=== PATIENT | male | born 1990 | race Caucasian/White ===

== ENCOUNTER 2021-03-05 12:53 | Emergency (ER) | payer SELFPAY ==
--- NOTE | ~2021-03-05 | US_ITS ---
EXAMINATION: US scrotum doppler EXAM DATE: 03/05/2021 14:04 INDICATION: Right-sided testicular swelling. Symptoms one week. TECHNIQUE: Multiple grayscale and Doppler images of the testicles and scrotum were obtained bilateral ly. There is no prior study for comparison. FINDINGS: Right testicle measures 3.4 x 3.5 x 3.7 cm and is morphologically normal. Low resistance Doppler sandy w confirmed. The epididymis is enlarged and hypervascular. There is a moderate-sized hydrocele. Left testicle measures 5.1 x 2.9 x 2.4 cm and is morphologically normal. Low resistance Doppler flow confirmed. The epididymis is unremarkable. There is no hydrocele or varicocele. IMPRESSION: Right-sided epididymoorchitis, moderate hydrocele. Reviewed, dictated and finalized at location A. IED BEHAVIOR SCIENCE SPECIALIST
[2021-03-05 13:10] VITALS: BP 149/88; PULSE 114; RESP 16; TEMP 36.6; O2SAT 100
[2021-03-05 14:31] LABS: Add Urine Microscopic? YES; Appearance Urine Cloudy (Clear); Bacteria Urine Trace /hpf; Bilirubin Urine Negative (Negative); Blood Urine Negative (Negative); Color Urine Yellow (Yellow); Glucose Urine UA Negative (Negative); Ketones Urine Negative (Negative); Leukocyte Esterase Ur 2+ LEU/UL (Negative); Mucus Urine Few /lpf; Nitrate Urine Negative (Negative); Protein Urine 1+ mg/dL (Negative); Specific Grav Ur 1.019 (1.001-1.035); Squamous Epithelial Cell Urine Rare /hpf (Few); Urobilinogen Urine Negative mg/dL (<2.0); WBC Urine 31-50 /hpf
[2021-03-05] MEDS: KETOROLAC 30 MG/ML VIAL (*BKC) IV PUSH (14:36)
[2021-03-05] MEDS: cefTRIAXone 1 GM VIAL 0.5 GM IM (15:23)
--- NOTE | 2021-03-05 15:49 | ED.GENADULT ---
HPI - General Adult General Chief complaint: Urogenital-Male <Raghavendra Gonzales PA-C - Last Filed: 03/05/21 15:57> Stated complaint: R TESTICULAR SWELLING X5D <FARNAZ Allen Last Filed: 03/05/21 15:57> Time Seen by Provider: 03/05/21 13:35 <Raghavendra Gonzales PA-C - Last Filed: 03/05/21 15:57> Source: patient <FARNAZ Allen Last Filed: 03/05/21 15:57> Mode of arrival: ambulatory <FARNAZ Allen Last Filed: 03/05/21 15:57> Limitations: no limitations <Raghavendra Gonzales PA-C - Last Filed: 03/05/21 15:57> History of Present Illness HPI narrative: Patient is a 30-year-old male presented with chief complaint of right testicle swelling and discomfort that has been present since Friday. Patient reports that he has noticed a very slight decrease in erythema and pain. Patient reports that he has been wearing supportive underwear and notices that this helps improve his symptoms. Patient reports that he is sexually active once a month that he denies any anal sexual intercourse. Patient denies any fevers, nausea, vomiting, chills, abdominal pain. He reports that he is allergic to amoxicillin as a child and believes he had a rash, but does not recall any issues with cephalosporins or clindamycin. He denies any testicular trauma. <Raghavendra Gonzales PA-C - Last Filed: 03/05/21 15:57> Related Data Allergies/adverse reactions: Allergies Allergy/AdvReac Type Severity Reaction Status Date / Time amoxicillin Allergy Unknown Verified 07/01/16 01:48 <Raghavendra Gonzales PA-C - Last Filed: 03/05/21 15:57> Review of Systems Review of Systems: CONSTITUTIONAL: Denies fever, chills, or sweats. EYES: Denies visual changes, redness, or discharge. ENT: Denies rhinorrhea, congestion, sore throat, or otalgia. CARDIOVASCULAR: Denies chest pain, palpitations, or edema. RESPIRATORY: Denies cough or dyspnea. GASTROINTESTINAL: Denies abdominal pain, nausea, vomiting, or diarrhea. GENITOURINARY: Reports testicular pain and swelling denies dysuria or hematuria. SKIN: Denies rash or itching. MUSCULOSKELETAL: Denies back pain, joint pain, or myalgia. NEUROLOGIC: Denies headache, numbness, dizziness, or weakness. PSYCHIATRIC: Denies anxiety or depression. <Raghavendra Gonzales PA-C - Last Filed: 03/05/21 15:57> Exam Narrative: GENERAL: Well-appearing, well-nourished, and in no acute distress. HEAD: Normocephalic, atraumatic. EYES: PERRLA and EOMI. CHEST: Clear to auscultation. No respiratory distress. No wheezes rales or rhonchi HEART: Regular rate and rhythm. No murmur heard. Normal peripheral pulses. ABDOMEN: Soft, nontender, nondistended, normal active bowel sounds. No vomiting. GENITALIA: Swollen,erythematous, warm right testicle. Pain improves with elevation. No erythema, lesions, or pain to penis. No wounds or ulcers noted. EXTREMITIES: Normal range of motion. No edema. SKIN: Warm, dry, no rash. NEURO: No focal deficits. Alert and oriented x3. PSYCH: Normal mood and affect. <Raghavendra Gonzales PA-C - Last Filed: 03/05/21 15:57> Course Vital Signs Vital signs: Vital Signs Temperature 97.8 F 03/05/21 13:10 Pulse Rate 114 H 03/05/21 13:10 Respiratory Rate 16 03/05/21 13:10 Blood Pressure 149/88 H 03/05/21 13:10 Pulse Oximetry 100 03/05/21 13:10 Temperature 97.8 F 03/05/21 13:10 Pulse Rate 114 H 03/05/21 13:10 Respiratory Rate 16 03/05/21 13:10 Blood Pressure 149/88 H 03/05/21 13:10 Pulse Oximetry 100 03/05/21 13:10 <Raghavendra Gonzales PA-C - Last Filed: 03/05/21 15:57> Medical Decision Making MDM Narrative Medical decision making narrative: Patient denies having anal intercourse so UTD epididymoorchitis recommendations are 500 mg of ceftriaxone and doxycycline for 10 days. Patient denies allergy to cephalosporins. Patient reports amoxicillin is on his allergy list due to a childhood rash, but denies anaphylaxis. Patient does not have any urin
== END 2021-03-05 16:00 | disposition home or self-care (01) ==
PROVIDERS: Emergency Medicine; Physician Assistant; Emergency Provider General Practice
DX: N45.3 Epididymo-orchitis (principal)
CPT/HCPCS: 76870; 81001; 87086; 87491; 87591; 93976; 96372; 96374; 99284; J0696; J1885; J7050

== ENCOUNTER 2022-06-13 19:00 | Emergency (ER) | payer OTHER, SELFPAY ==
[2022-06-13 19:05] VITALS: BP 129/96; PULSE 97; RESP 18; TEMP 37.2; O2SAT 100
[2022-06-13] MEDS: IBUPROFEN 400 MG TABLET 800 MG PO (22:51)
[2022-06-13 23:21] LABS: Basophils Absolute Auto 0.1 K/mm3 (0.0-0.1); Basophils Percent Auto 0.4 % (0.2-1.2); Eosinophils Absolute Auto 0.2 K/mm3 (0-0.3); Eosinophils Percent Auto 1.1 % (0-4.4); Hematocrit 43.7 % (42.0-52.0); Hemoglobin 14.9 g/dL (14.0-18.0); Immature Granulocyte Absolute 0.05 K/mm3 (0.00-0.031); Immature Granulocyte Percent A 0.3 % (0-0.5); Lymphocytes Absolute Auto 2.11 K/mm3 (0.9-3.2); Lymphocytes Percent Auto 12.7 % (18.3-44.2); Mean Corpuscular HGB Conc 34.1 g/dl (32-36); Mean Corpuscular Hemoglobin 29.5 pg (26-34); Mean Corpuscular Volume 86.5 fl (80-100); Mean Platelet Volume 9.1 fl (7.4-10.4); Monocytes Absolute Auto 1.2 K/mm3 (0.1-0.6); Monocytes Percent Auto 7.5 % (2.6-8.5); Platelet Count Result 284 k/mm3 (150-375); Red Blood Count 5.05 M/mm3 (4.6-6.20); Red Cell Distribution Width 13.2 % (11.5-14.5); White Blood Count 16.6 K/mm3 (4.5-10.0)
[2022-06-13 23:30] LABS: Alanine Aminotransferase 18 U/L (6-50); Albumin Level 4.1 g/dL (3.5-5.1); Alkaline Phosphatase 76 U/L (38-126); Anion Gap 4 mmol/L (8-16); Aspartate Amino Transferase 22 U/L (17-59); Bilirubin,Total 1.2 mg/dL (0.2-1.3); Blood Urea Nitrogen 16 mg/dL (9-20); Calcium 8.7 mg/dL (8.4-10.2); Carbon Dioxide 28 mmol/L (22-30); Chloride 101 mmol/L (98-107); Estimated CRCL calculation 96 ml/min; Estimated Glomerular Filt Rate > 60; Glucose 88 mg/dL (65-110); Sodium 133 mmol/L (137-145)
--- NOTE | 2022-06-13 23:30 | ED.GENADULT ---
HPI - General Adult General Chief complaint: Skin/Abscess/Foreign Body <Donnell Mares PA-C - Last Filed: 06/14/22 02:56> Stated complaint: right arm abscess <FARNAZ Ricardo Last Filed: 06/14/22 02:56> Time Seen by Provider: 06/13/22 21:05 <FARNAZ Ricardo Last Filed: 06/14/22 02:56> Source: patient <FARNAZ Ricardo Last Filed: 06/14/22 02:56> Mode of arrival: ambulatory <FARNAZ Ricardo Last Filed: 06/14/22 02:56> Limitations: no limitations <FARNAZ Ricardo Last Filed: 06/14/22 02:56> History of Present Illness HPI narrative: This is a 31-year-old male presents with chief complaint of skin lesion onset x3 days. Patient states it is located on the right arm. Patient states he thought he had a bug bite on the arm and scratched at it. States this has been draining purulent material all of today. Reports pain at the site and surrounding redness. Denies any IV drug use. Reports chills but no recorded fevers. States he is fatigued. Denies chest pain, shortness of breath, cough, headache, abdominal pain, urinary symptoms. States he has not taken any medication for this at home. <FARNAZ Ricardo Last Filed: 06/14/22 02:56> Related Data Allergies/adverse reactions: Allergies Allergy/AdvReac Type Severity Reaction Status Date / Time amoxicillin Allergy Unknown Unknown Verified 06/13/22 19:01 <FARNAZ Ricardo Last Filed: 06/14/22 02:56> Review of Systems Review of Systems: CONSTITUTIONAL: Denies fever, or sweats. Endorses fatigue and chills. EYES: Denies visual changes, redness, or discharge. ENT: Denies rhinorrhea, congestion, sore throat, or otalgia. CARDIOVASCULAR: Denies chest pain, palpitations, or edema. RESPIRATORY: Denies cough or dyspnea. GASTROINTESTINAL: Denies abdominal pain, nausea, vomiting, or diarrhea. GENITOURINARY: Denies dysuria or hematuria. SKIN: Endorses skin lesions of the right arm. Endorses erythema and pain. denies rash or itching. MUSCULOSKELETAL: Denies back pain, joint pain, or myalgia. NEUROLOGIC: Denies headache, numbness, dizziness, or weakness. PSYCHIATRIC: Denies anxiety or depression. <Donnell Mares PA-C - Last Filed: 06/14/22 02:56> Exam Narrative: GENERAL: Well-appearing, well-nourished, and in no acute distress. HEAD: Normocephalic, atraumatic. EYES: PERRLA and EOMI. ENT: Nares clear, no rhinorrhea or epistaxis. Mucous membranes moist. Oropharynx without tonsillar hypertrophy exudate or other lesions. NECK: Supple. No adenopathy or masses. CHEST: No respiratory distress. Clear to auscultation. No wheezes rales or rhonchi HEART: Regular rate and rhythm. No murmur heard. Normal peripheral pulses. ABDOMEN: Soft, nontender, nondistended, normal active bowel sounds. EXTREMITIES: Normal range of motion. No edema. Full active range of motion of the right shoulder. SKIN: There is a area of redness to the right lateral upper arm, deltoid region. Centrally located indurated, erythematous, purulent lesion that is currently draining. Significantly tender to palpation. No crepitus is felt. Warm, dry, no rash. NEURO: Alert and oriented x3. No focal deficits. PSYCH: Normal mood and affect. <Donnell Mares PA-C - Last Filed: 06/14/22 02:56> Course NUCLEAR RADIOLOGIST/PA Physician Supervision For this encounter, I have reviewed the mid-level provider documentation, treatment plan and medical decision making. I have had [id number] time with the patient. 31-year-old male presenting with an abscess on his right upper arm. Fluid collections current firmed with ultrasound. An I&D was performed hobson components performed under my supervision. Patient will be discharged on clindamycin. . All questions answered. Patient in agreement w/ disposition. <Lito Win MD - Last Filed: 06/16/22 19:26> Vital Signs Vital signs: Vital Signs Temperature 99 F 06/13/22 19:05 Pulse Rate 97 06/13/22 19:05 Respi
[2022-06-13] MEDS: LIDO 1%/EPINEPHRINE 1:100,000 20 ML VIAL 10 ML INFILTRATE (23:51)
[2022-06-14 00:49] VITALS: BP 134/72; PULSE 110; RESP 16; O2SAT 10
--- NOTE | 2022-06-18 10:15 | PC.NURSE ---
Received call from lab with critical lab value for wound cx. Cx positive for MRSA. Dr. Bocanegra was on-call for the ED when pt was seen. Lab results faxed to Dr. Bocanegra's office.
== END 2022-06-14 00:55 | disposition home or self-care (01) ==
PROVIDERS: Emergency Provider Physician Assistant
DX: L03.113 Cellulitis of right upper limb (principal); L02.413 Cutaneous abscess of right upper limb
CPT/HCPCS: 10060; 36415; 80053; 85025; 87070; 87147; 87186; 87205; 99283; A9270

== ENCOUNTER 2022-06-20 19:45 | Observation (INO) | payer OTHER, SELFPAY ==
--- NOTE | ~2022-06-20 | CT_ITS ---
CT scan of the right shoulder CLINICAL HISTORY: Abscess, spider bite TECHNIQUE: Following intravenous administration of 100 cc of Omnipaque 350 contrast material, axial i maging of the right shoulder was performed. Sagittal and coronal reformatted images were constructed. Dose reduction technique was used on this scan by utilizing automated exposure control and iterative reconstruction technique. The dose-length product (DLP) was 588.22 mGy-cm. FINDINGS: There is no fracture or dislocation. Osseous alignment is anatomic. Visualized joint spaces are unremarkable. No glenohumeral joint effusion. Visualized musculature is unremarkable. There is apparent wound with skin thickening at the lateral a spect of the upper arm. No abscess identified. IMPRESSION: No abscess. No osseous or articular abnormality. Skin thickening and irregularity consistent with wound or spider bite at the lateral aspect of the up per arm. Correlate with physical exam. Reviewed, dictated and finalized at [facility]. UET SERVER IMPRESSION: No abscess. No osseous or articular abnormality. Skin thickening and irregularity consistent with wound or spider bite at the la teral aspect of the upper arm. Correlate with physical exam.
[2022-06-20 20:11] VITALS: BP 130/81; PULSE 92; RESP 18; TEMP 36.3; O2SAT 100
--- NOTE | 2022-06-20 21:52 | ED.WOUNDLAC ---
HPI - Wound/Laceration General Chief Complaint: Wound/Laceration <FARNAZ Guerrero Last Filed: 06/21/22 02:05> Stated Complaint: wound <FARNAZ Guerrero Last Filed: 06/21/22 02:05> Time Seen by Provider: 06/20/22 21:33 <FARNAZ Guerrero Last Filed: 06/21/22 02:05> History of Present Illness HPI narrative: 31-year-old male here for evaluation of drainage, redness and pain to his right shoulder. He had an abscess drained several days ago here in the ER and was placed on clindamycin. Patient has been taking the clinda as directed but states that the wound is getting worse. He has left the wound open and exposed to air. He has also developed 2 new abscesses near his groin that are draining spontaneously. Denies history of diabetes or IV drug use. <FARNAZ Guerrero Last Filed: 06/21/22 02:05> Related Data Allergies/Adverse Reactions: Allergies Allergy/AdvReac Type Severity Reaction Status Date / Time amoxicillin Allergy Unknown Unknown Verified 06/20/22 22:37 <FARNAZ Guerrero Last Filed: 06/21/22 02:05> Review of Systems Review of Systems: Gen.: Denies fevers or chills Eyes: Denies eye pain or visual change ENT: Denies congestion Respiratory: Denies shortness of breath or cough CV: Denies chest pain or palpitations GI: Denies abdominal pain nausea, emesis or diarrhea denies burning, urgency, frequency or hematuria Musculoskeletal: Denies leg swelling Neuro: Denies numbness, tingling, weakness or focal weakness Skin: Reports redness and swelling to right shoulder Except as documented, all other systems reviewed and negative <FARNAZ Guerrero Last Filed: 06/21/22 02:05> Exam Narrative: APPEARANCE: Well appearing, no pain in distress, well-nourished. Head: Normocephalic and atraumatic. EYES: PERRLA/EOMI, conjunctivae clear NOSE: No nasal drainage EARS: External ear normal in appearance THROAT: Oropharynx is clear. Mucous membranes are moist. NECK: Supple. No adenopathy, no masses. RESPIRATORY: Airway patent, respirations nonlabored. Clear to auscultation bilaterally, no rales, rhonchi, wheezing. CARDIOVASCULAR: Regular rate and rhythm without murmurs, rubs, or gallops. ABDOMINAL: Normoactive bowel sounds. Soft, nontender, nondistended. No rebound tenderness or guarding. MUSCULOSKELETAL: Extremities are warm and well-perfused. Moves all extremities well. No edema. NEURO: Normal speech. No focal neurologic deficits. SKIN: Patient has a 2 x 3 cm circular wound overlying the right deltoid with large amounts of purulent material spontaneously draining and overlying eschar, very tender to palpation. The eschar was gently removed and there is subcutaneous fat visible, no muscle tissue visible. He additionally has two 1 cm areas of erythema to his mons pubis have some underlying fluctuance and induration, also are very tender to palpation. 1 of these lesions is draining purulent material as well. PSYCHIATRIC: Normal affect/mood. <Cindy Hatch PA-C - Last Filed: 06/21/22 02:05> Course CONSUMER AFFAIRS SPECIALIST/PA Physician Supervision For this encounter, I have reviewed the PA documentation, treatment plan and medical decision making: And I have had [id number] time with the patient. Patient's right upper lateral arm with a large open wound with purulent drainage with surrounding erythema upper extremity neurovascular intact discussed need for admission questions answered in agreement <Edouard Joseph DO - Last Filed: 06/21/22 01:32> Vital Signs Vital signs: Vital Signs Temperature 97.4 F L 06/20/22 20:11 Pulse Rate 92 06/20/22 20:11 Respiratory Rate 18 06/20/22 20:11 Blood Pressure 130/81 06/20/22 20:11 Pulse Oximetry 100 06/20/22 20:11 Oxygen Delivery Room Air 06/20/22 20:11 Temperature 97.4 F L 06/20/22 20:11 Pulse Rate 92 06/20/22 20:11 Respiratory Rate 18 06/20/22 20:11 Blood Pressure
[2022-06-20] MEDS: HYDROcodone/acetaminophen (*CRX) 5-325 MG TABLET 1 TAB PO (22:31)
[2022-06-20] MEDS: LIDOCAINE/PRILOCAINE CREAM 2.5-2.5% TUBE 1 EACH TOPICAL (22:53)
[2022-06-20 23:00] VITALS: BP 130/87; PULSE 73; RESP 14; O2SAT 96
[2022-06-20 23:01] LABS: Basophils Absolute Auto 0.1 K/mm3 (0.0-0.1); Basophils Percent Auto 0.5 % (0.2-1.2); Eosinophils Absolute Auto 0.3 K/mm3 (0-0.3); Eosinophils Percent Auto 2.4 % (0-4.4); Hematocrit 45.8 % (42.0-52.0); Hemoglobin 15.4 g/dL (14.0-18.0); Immature Granulocyte Absolute 0.03 K/mm3 (0.00-0.031); Immature Granulocyte Percent A 0.3 % (0-0.5); Lymphocytes Absolute Auto 2.63 K/mm3 (0.9-3.2); Lymphocytes Percent Auto 25.2 % (18.3-44.2); Mean Corpuscular HGB Conc 33.6 g/dl (32-36); Mean Corpuscular Hemoglobin 29.2 pg (26-34); Mean Corpuscular Volume 86.9 fl (80-100); Mean Platelet Volume 8.9 fl (7.4-10.4); Monocytes Absolute Auto 0.9 K/mm3 (0.1-0.6); Neutrophils Absolute Auto 6.6 K/mm3 (1.3-6.7); Neutrophils Percent Auto 62.6 % (45.5-73.1); Platelet Count Result 383 k/mm3 (150-375); Red Blood Count 5.27 M/mm3 (4.6-6.20); Red Cell Distribution Width 12.6 % (11.5-14.5); White Blood Count 10.5 K/mm3 (4.5-10.0)
[2022-06-20 23:15] LABS: Anion Gap 3 mmol/L (8-16); Blood Urea Nitrogen 16 mg/dL (9-20); CRP 0.7 mg/dL (<1.0); Calcium 8.4 mg/dL (8.4-10.2); Carbon Dioxide 32 mmol/L (22-30); Chloride 101 mmol/L (98-107); Estimated CRCL calculation 106 ml/min; Estimated Glomerular Filt Rate > 60; Glucose 102 mg/dL (65-110); Sodium 136 mmol/L (137-145)
[2022-06-21] VITALS (7 sets, daily range): BP systolic 119–128; BP diastolic 69–98; PULSE 64–99; RESP 12–19; TEMP 36.2–36.8; O2SAT 96–100
[2022-06-21 00:08] LABS: Erythrocyte Sedimentation Rate 17 mm/hr (0-20)
[2022-06-21 04:56] LABS: Influenza A QL RT-PCR Negative (Negative); Influenza B QL RT-PCR Negative (Negative); SARS-CoV-2 RNA PCR Negative
--- NOTE | 2022-06-21 05:24 | ADMGEN ---
This patient, Ash Gandhi, was admitted to [facility] Surg Room 305-02. Patient/family oriented to hospital policies and general routines including ID bracelet, bed and alarms, visiting hours, pain management, procedures, bathroom and other care routines, personal items, smoking policy, room service/diet, and visiting hours. Information on how to activate the Rapid Response Team has been discussed. Patient/Family are encouraged to report perceived risks to care and to ask questions if they do not understand what they are told or what they should do.
[2022-06-21 08:14] LABS: Basophils Absolute Auto 0.1 K/mm3 (0.0-0.1); Basophils Percent Auto 0.7 % (0.2-1.2); Eosinophils Absolute Auto 0.3 K/mm3 (0-0.3); Eosinophils Percent Auto 2.7 % (0-4.4); Hemoglobin 15.1 g/dL (14.0-18.0); Immature Granulocyte Absolute 0.04 K/mm3 (0.00-0.031); Immature Granulocyte Percent A 0.4 % (0-0.5); Lymphocytes Absolute Auto 2.65 K/mm3 (0.9-3.2); Lymphocytes Percent Auto 25.1 % (18.3-44.2); Mean Corpuscular HGB Conc 33.6 g/dl (32-36); Mean Corpuscular Hemoglobin 29.4 pg (26-34); Mean Corpuscular Volume 87.7 fl (80-100); Mean Platelet Volume 8.9 fl (7.4-10.4); Monocytes Percent Auto 9.8 % (2.6-8.5); Neutrophils Absolute Auto 6.5 K/mm3 (1.3-6.7); Neutrophils Percent Auto 61.3 % (45.5-73.1); Platelet Count Result 365 k/mm3 (150-375); Red Blood Count 5.13 M/mm3 (4.6-6.20); Red Cell Distribution Width 12.8 % (11.5-14.5); White Blood Count 10.6 K/mm3 (4.5-10.0)
--- NOTE | 2022-06-21 08:30 | PM.IMHP ---
H&P: HPI History of Present Illness Date/Time: 06/21/2230 Chief Complaint: Un healing wound of the right bicep Narrative: Patient is a 31-year-old male with no significant past medical history who presented to the ED with complaints of an unhealing wound of the right bicep. patient stated that it happened about a week and half ago. He has been seen at the ED for the wound in the past. Patient stated that the wound has never Started to heal. Patient stated that he has been on clindamycin. He has been keeping it open putting antibiotic ointment as well. Patient stated that he has been having some pretty significant drainage which he describes as being read in nature. Culture from previous visit did show MRSA. patient does state that he does have pain however only when he moves or when trying to manage it. Patient currently denies any chest pain, shortness a breath, nausea, vomiting, diarrhea, constipation, weakness, fatigue, sweats, fevers, chills. Patient denies any swelling. Did have wound care look at the wound and it did start draining a green purulence fluid. It does have some tunneling as well. Wound appears to be Upon approximated, red. There is a hard area underneath the wound. CT of the arm did show no abscess however skin thickening and irregularity consistent with wound or spider bite. General surgery has been consulted. Will make patient NPO for now. Patient is being admitted to the hospitalist service under observation Review of Systems Review of Systems: All systems reviewed & are unremarkable except as noted in HPI and below PMFSH Past Medical History Medical History Open wound of right shoulder Trichimoniasis Surgical History Surgical History (Updated 06/21/22 @ 09:18 by [facility]) No significant past surgical history Family History Family History Grandparent Heart disease Hypertension Social History Social History Social History: Patient currently lives on his own and has 2 kids. Patient denies having any pets. Patient elects his grandma Lakesha Baxter to be his surrogate. Patient wishes to be a full code at this time Smoking status: Never smoker Additional smoking assessment comments: smokes marijuana only Alcohol intake: current Drinks per week: 2 Substance use: current Substance use type: marijuana Other substance usage details: 5 joints per day Last use: 06/20 Lack of Transportation: No Lack of Food: Never True Current Housing: I Have Housing Concerned About Future Housing: No Difficulty Paying Gas/Electric Bills: No Difficulty Paying for Meds: No Currently Unemployed: YES Education: Trade/Vocational Certificate Difficulty w/ Childcare or Family Care: No Living arrangements: alone Occupation/Education: occupation 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 Gender identity (if verbalized by the patient): Male Sexual Orientation (if Verbalized by the Patient): Straight or Heterosexual Spiritual care concerns: No Agree to blood products: Yes Meds Home Medications and Allergies Home Medications Medication Instructions Recorded Confirmed Type naproxen 500 mg tablet (Naprosyn) 500 mg PO BID PRN pain 06/21/22 06/21/22 History Allergies Allergy/AdvReac Type Severity Reaction Status Date / Time amoxicillin Allergy Unknown Unknown Verified 06/20/22 22:37 Vital Signs Vital Signs - 24 hr 06/20/22 20:11 06/20/22 23:00 06/21/22 01:00 Temperature 97.4 F L Pulse Rate 92 73 87 Respiratory Rate 18 14 19 Blood Pressure 130/81 130/87 128/90 Pulse Oximetry 100 96 99 Oxygen Delivery Room Air 06/21/22 03:00 06/21/22 05:02 06/21/22 05:20 Temperature 98.2 F Pulse Rate 99 65 67 Respiratory Rate 12 19 18 Blood Pr
[2022-06-21 08:33] LABS: Alanine Aminotransferase 25 U/L (6-50); Albumin Level 3.8 g/dL (3.5-5.1); Alkaline Phosphatase 69 U/L (38-126); Anion Gap 2 mmol/L (8-16); Aspartate Amino Transferase 25 U/L (17-59); Bilirubin,Total 0.4 mg/dL (0.2-1.3); Blood Urea Nitrogen 15 mg/dL (9-20); Calcium 8.5 mg/dL (8.4-10.2); Carbon Dioxide 34 mmol/L (22-30); Chloride 100 mmol/L (98-107); Estimated CRCL calculation 106 ml/min; Estimated Glomerular Filt Rate > 60; Glucose 97 mg/dL (65-110); Magnesium 2.4 mg/dL (1.6-2.3); Potassium 4.2 mmol/L (3.4-5.0); Sodium 136 mmol/L (137-145)
[2022-06-21] MEDS: MORPHINE SULFATE (*CRX) 2 MG/ML INJ 1 MG IV PUSH ×2 (09:06→17:05)
[2022-06-21 10:06] LABS: Amphetamine Screen Urine Positive (Negative); Barbiturate Screen Urine Negative (Negative); Benzodiazepines Screen Urine Negative (Negative); Cannabinoid Screen Urine Positive (Negative); Cocaine Screen Urine Negative (Negative); Methadone Screen Urine Negative (Negative); Opiate Screen Urine Positive (Negative); Phencyclidine Screen Urine Negative (Negative)
[2022-06-21 10:09] LABS: Appearance Urine Clear (Clear); Bilirubin Urine Negative (Negative); Blood Urine Negative (Negative); Color Urine Yellow (Yellow); Glucose Urine UA Negative (Negative); Ketones Urine Negative (Negative); Leukocyte Esterase Ur Negative LEU/UL (Negative); Nitrate Urine Negative (Negative); Protein Urine Negative (Negative); Urobilinogen Urine 0.2 mg/dL (<2.0)
[2022-06-21 10:15] LABS: Amorphous Sediment Urine Few; Mucus Urine Rare /lpf; WBC Urine 0-3 /hpf
[2022-06-21 10:16] LABS: Add Urine Microscopic? NO
[2022-06-21] MEDS: SODIUM CHLORIDE 0.9% IV 1,000 ML 100 ML IV CONT ×2 (10:21→21:42)
--- NOTE | 2022-06-21 18:22 | PM.CNGS ---
Assessment and Plan Assessment and plan (1) Insect bite of right upper extremity with infection: Code(s): S40.861A - Insect bite (nonvenomous) of right upper arm, initial encounter; L08.9 - Local infection of the skin and subcutaneous tissue, unspecified; W57.XXXA - Bitten or stung by nonvenomous insect and other nonvenomous arthropods, initial encounter Status: Acute Assessment and Plan: Patient presented with necrotic and purulent wound most likely after some type of insect bite. The skin layers have sloughed and there are a couple of purulent pockets remaining. It is tender but not painful. There is no significant swelling to the arm or the shoulder. He is on antibiotics. Will follow along with you (2) Wound of right upper extremity: Code(s): S41.101A - Unspecified open wound of right upper arm, initial encounter Status: Acute Assessment and Plan: Will change to silver gel dressings. Will clean up the purulent pockets with Q-tip tomorrow. Hopefully he can go home in a couple of days. History of Present Illness Consult details Consult date: 06/21/22 Requesting physician: Cindy Hatch PA-C Narrative: Patient is a 31-year-old man who about 10 days ago noticed what appeared to be an insect bite on his right upper arm near the shoulder. Over the next few days this swelled and developed a purulent head. He went to the emergency room a week ago and incision and drainage was performed. Cultures at that time showed MRSA. He was discharged but continued to have problems. He came back to the emergency room yesterday evening and was readmitted. He is seen now in consultation. He is not currently having any significant pain associated with this wound. Patient did have some small pustules in the pubic area but these seem to be healing. Review of Systems Review of Systems: All systems reviewed & are unremarkable except as noted in HPI and below (HPI and those items noted below) Constitutional: Constitutional: Denies chills and Denies fever(s) Cardiovascular: Cardiovascular: Denies chest pain, Denies diaphoresis, Denies dyspnea and Denies paroxysmal nocturnal dyspnea Respiratory: Respiratory: Denies chest congestion, Denies cough and Denies dyspnea Integumentary/Breasts: Skin/Breast: Denies lesions and Denies rash PMFSH Past Medical History Medical History (Updated 06/21/22 @ 18:32 by Russell Newman MD) Open wound of right shoulder Trichimoniasis Surgical History Surgical History (Updated 06/21/22 @ 09:18 by [facility]) No significant past surgical history Family History Family History Grandparent Heart disease Hypertension Social History Social History Social History: Patient currently lives on his own and has 2 kids. Patient denies having any pets. Patient elects his grandma Lakesha Baxter to be his surrogate. Patient wishes to be a full code at this time Smoking status: Never smoker Additional smoking assessment comments: smokes marijuana only Alcohol intake: current Drinks per week: 2 Substance use: current Substance use type: marijuana Other substance usage details: 5 joints per day Last use: 06/20 Lack of Transportation: No Lack of Food: Never True Current Housing: I Have Housing Concerned About Future Housing: No Difficulty Paying Gas/Electric Bills: No Difficulty Paying for Meds: No Currently Unemployed: YES Education: Trade/Vocational Certificate Difficulty w/ Childcare or Family Care: No Living arrangements: alone Occupation/Education: occupation 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
[2022-06-22 06:00] VITALS: BP 122/82; PULSE 66; RESP 18; TEMP 36.3; O2SAT 97
[2022-06-22 06:32] LABS: Basophils Absolute Auto 0.1 K/mm3 (0.0-0.1); Basophils Percent Auto 0.8 % (0.2-1.2); Eosinophils Absolute Auto 0.2 K/mm3 (0-0.3); Eosinophils Percent Auto 2.4 % (0-4.4); Hematocrit 43.7 % (42.0-52.0); Immature Granulocyte Absolute 0.03 K/mm3 (0.00-0.031); Immature Granulocyte Percent A 0.3 % (0-0.5); Lymphocytes Absolute Auto 2.15 K/mm3 (0.9-3.2); Lymphocytes Percent Auto 24.2 % (18.3-44.2); Mean Corpuscular HGB Conc 34.3 g/dl (32-36); Mean Corpuscular Hemoglobin 29.8 pg (26-34); Mean Corpuscular Volume 86.7 fl (80-100); Mean Platelet Volume 8.9 fl (7.4-10.4); Monocytes Absolute Auto 0.6 K/mm3 (0.1-0.6); Monocytes Percent Auto 7.2 % (2.6-8.5); Neutrophils Absolute Auto 5.8 K/mm3 (1.3-6.7); Neutrophils Percent Auto 65.1 % (45.5-73.1); Platelet Count Result 324 k/mm3 (150-375); Red Blood Count 5.04 M/mm3 (4.6-6.20); Red Cell Distribution Width 12.6 % (11.5-14.5); White Blood Count 8.9 K/mm3 (4.5-10.0)
[2022-06-22 06:45] LABS: Alanine Aminotransferase 25 U/L (6-50); Albumin Level 3.5 g/dL (3.5-5.1); Alkaline Phosphatase 61 U/L (38-126); Anion Gap 3 mmol/L (8-16); Aspartate Amino Transferase 22 U/L (17-59); Bilirubin,Total 0.4 mg/dL (0.2-1.3); Blood Urea Nitrogen 14 mg/dL (9-20); Calcium 8.2 mg/dL (8.4-10.2); Carbon Dioxide 28 mmol/L (22-30); Chloride 103 mmol/L (98-107); Estimated CRCL calculation 106 ml/min; Estimated Glomerular Filt Rate > 60; Glucose 93 mg/dL (65-110); Magnesium 2.2 mg/dL (1.6-2.3); Potassium 4.2 mmol/L (3.4-5.0); Sodium 134 mmol/L (137-145)
[2022-06-22] MEDS: SODIUM CHLORIDE 0.9% IV 1,000 ML 100 ML IV CONT (09:02)
--- NOTE | 2022-06-22 10:15 | PM.IMPN ---
Progress Note: A&P Assessment and Plan (1) Wound of right upper extremity: Code(s): S41.101A - Unspecified open wound of right upper arm, initial encounter Status: Acute Assessment and Plan: Unknown history of wound Failed outpatient trend with clindamycin Culture from 06/13/22 showed MRSA New culture shows staph aureus Continue vanco for now General surgery consult thank you for your help Wound care consult, follow dressing and ointment instruction as indicated Pain medications on board WBC stable, afebrile, no signs of sepsis (2) Insect bite of right upper extremity with infection: Code(s): S40.861A - Insect bite (nonvenomous) of right upper arm, initial encounter; L08.9 - Local infection of the skin and subcutaneous tissue, unspecified; W57.XXXA - Bitten or stung by nonvenomous insect and other nonvenomous arthropods, initial encounter Status: Acute Assessment and Plan: See above (3) MRSA infection: Code(s): A49.02 - Methicillin resistant Staphylococcus aureus infection, unspecified site Status: Acute Assessment and Plan: Culture results from wound did show MRSA Currently on Vancomycin Switch to bactrim on discharge Will get a MRSA swab If positive patient will need Hibba cleanze and Mupirocin Follow swab Plan Spoke with Dr. Newman. Plan as indicated above Time Spent With Patient Time: 48 minutes Time with patient: Greater than 35 minutes Subjective Date/time seen: 06/22/22 1015 Interval history: 06/22/22 1015 Patient is doing okay. Patient stated that he is really board and ready to go. He denies any pain in his arm and stated that he can move it in all directions. He also stated that he feels he can do this at home as well. Spoke to him about taking antibiotics. Currently he denies any chest pain, shortness a breath, nausea, vomiting, diarrhea or constipation. 06/21/22? 0830 Patient is a 31-year-old male with no significant past medical history who presented to the ED with complaints of an unhealing wound of the right bicep. patient stated that it happened about a week and half ago.? He has been seen at the ED for the wound in the past.? Patient stated that the wound has never? Started to heal.? Patient stated that he has been on clindamycin.? He has been keeping it open putting antibiotic ointment as well.? Patient stated that he has been having some pretty significant drainage which he describes as being read in nature.? Culture from previous visit did show MRSA. patient does state that he does have pain however only when he moves or when trying to manage it.? Patient currently denies any chest pain, shortness a breath, nausea, vomiting, diarrhea, constipation, weakness, fatigue, sweats, fevers, chills.? Patient denies any swelling.? Did have wound care look at the wound and it did start draining a green purulence fluid.? It does have some tunneling as well.? Wound appears to be ? Upon approximated, red.? There is a hard area underneath the wound.? CT of the arm did show no abscess however skin thickening and irregularity consistent with wound or spider bite.? General surgery has been consulted.? Will make patient NPO for now. Review of Systems Review of Systems: All systems reviewed & are unremarkable except as noted in HPI and below Exam Narrative: General: well-nourished, well-appearing 31-year-old male, laying in bed, comfortable, NARD Neuro: awake, alert and oriented x4, speech clear, no focal neuro deficits noted HEENMT: normocephalic, atraumatic, EOMI, sclerae anicteric, moist oral mucosa Respiratory: Clear to auscultation bilaterally without crackles, rhonchi or wheezes, nonlabored breathing Cardio: regular rate, regular rhythm with S1-S2 Abdomen: nondistended, normoactive bowel sounds, soft, nontender to palpation Extremities: no edema, erythema, or tenderness to palpation, DP pulses 2+ bilaterally, wound
[2022-06-22 10:26] LABS: Vancomycin Trough 11.2 ug/mL (10.0-20.0)
[2022-06-22 14:00] VITALS: PULSE 75; RESP 16; TEMP 36.5; O2SAT 98
[2022-06-22 14:40] VITALS: BP 129/93
[2022-06-22] MEDS: SILVERGEL (ELTA) 45 ML 1 APPLIC TOPICAL (14:45)
--- NOTE | 2022-06-22 14:51 | PM.PNGS ---
Progress Note: A&P Assessment and Plan (1) MRSA infection: Code(s): A49.02 - Methicillin resistant Staphylococcus aureus infection, unspecified site Status: Acute Assessment and Plan: On vancomycin. I discussed with hospitalist, Pete Hay, probably home tomorrow on doxycycline. Patient to have nasal swab to check for MRSA. (2) Insect bite of right upper extremity with infection: Code(s): S40.861A - Insect bite (nonvenomous) of right upper arm, initial encounter; L08.9 - Local infection of the skin and subcutaneous tissue, unspecified; W57.XXXA - Bitten or stung by nonvenomous insect and other nonvenomous arthropods, initial encounter Status: Acute Assessment and Plan: Suspect this was a spider bite. (3) Wound of right upper extremity: Code(s): S41.101A - Unspecified open wound of right upper arm, initial encounter Status: Acute Assessment and Plan: Will continue silver gel dressing changes with soap and water cleaning in the shower or at the sink daily as well when discharged. Subjective Subjective Date/Time Seen: 06/22/22 14:51 Patient reports: feels better, pain is less and afebrile Review of Systems Review of Systems: All systems reviewed & are unremarkable except as noted in HPI and below (HPI and those items noted below) Constitutional: Constitutional: Denies chills and Denies fever(s) Cardiovascular: Cardiovascular: Denies chest pain, Denies diaphoresis, Denies dyspnea and Denies paroxysmal nocturnal dyspnea Respiratory: Respiratory: Denies chest congestion, Denies cough and Denies dyspnea Integumentary/Breasts: Skin/Breast: Denies lesions and Denies rash Exam Extrem: Right upper extremity: shoulder/upper arm (Right deltoid wound looks good. ) other (Small amount of purulence which I removed with a Q-tip. Red and granulating otherwise.) Objective Data Vital Signs Vital Signs: Vital Signs - 24 hr 06/21/22 20:00 06/21/22 22:00 06/22/22 06:00 Temperature 36.2 C L 36.3 C L Pulse Rate 64 65 66 Respiratory Rate 14 16 18 Blood Pressure 124/84 122/82 Pulse Oximetry 98 97 97 Oxygen Delivery Room Air 06/22/22 09:00 06/22/22 14:00 06/22/22 14:40 Temperature 36.5 C Pulse Rate 75 Respiratory Rate 16 Blood Pressure 129/93 H Pulse Oximetry 98 Oxygen Delivery Room Air Intake/Output Intake/Output: Intake & Output 06/19/22 06/20/22 06/21/22 06/22/22 23:59 23:59 23:59 23:59 Intake Total 2120 1370 Output Total 760 Balance 2120 610 Meds/Results Medications: Active Medications Generic Name Dose Route Start Last Admin Trade Name Freq PRN Reason Stop Dose Admin Acetaminophen 1,000 mg 06/21/22 09:21 Acetaminophen 500 Mg Tablet PO Q6H PRN Mild Pain (1-3) or Fever Hydrocodone Bitart/Acetaminophen 1 tab 06/21/22 02:00 Hydrocodone/Acetaminophen (*Crx) 5-325 Mg Tablet PO Q4H PRN Pain Rated 4-6 Vancomycin HCl 1,250 mg in 250 mls @ 200 mls/hr 06/21/22 11:00 06/22/22 11:13 Vancomycin 1,250 Mg/D5w 250 Ml IVPB 200 mls/hr Q12H KIMBERLY Administration Morphine Sulfate 1 mg 06/21/22 09:21 06/21/22 17:05 Morphine Sulfate (*Crx) 2 Mg/Ml Inj IV PUSH 1 mg Q4H PRN Administration Pain Rated 7-10 Silver Nitrate 1 applic 06/22/22 08:15 Silvergel (Elta) 45 Ml TOPICAL DAILY [facility] Radiology Results: ITS Impressions Shoulder CT 06/21/22 06:31 IMPRESSION: No abscess. No osseous or articular abnormality. Skin thickening and irregularity consistent with wound or spider bite at the lateral aspect of the upper arm. Correlate with physical exam. Labs Labs: Laboratory Results - last 24 hr 06/22/22 06/22/22 06/22/22 06:14 06:14 09:45 WBC 8.9 RBC 5.04 Hgb 15.0 Hct 43.7 MCV 86.7 MCH 29.8 MCHC 34.3 RDW 12.6 Plt Count 324 MPV 8.9 Immature Gran % (Auto) 0.3 Neut % (Auto) 65.1 Lymph % (Auto) 24.2 O'Brien % (Au
[2022-06-22 22:00] VITALS: BP 138/79; PULSE 81; RESP 20; TEMP 36.4; O2SAT 98
[2022-06-23 06:00] VITALS: BP 117/73; PULSE 67; RESP 18; TEMP 36.3; O2SAT 98
[2022-06-23 07:40] LABS: Basophils Absolute Auto 0.1 K/mm3 (0.0-0.1); Basophils Percent Auto 0.8 % (0.2-1.2); Eosinophils Absolute Auto 0.3 K/mm3 (0-0.3); Eosinophils Percent Auto 2.6 % (0-4.4); Hematocrit 44.2 % (42.0-52.0); Hemoglobin 14.9 g/dL (14.0-18.0); Immature Granulocyte Absolute 0.02 K/mm3 (0.00-0.031); Immature Granulocyte Percent A 0.2 % (0-0.5); Lymphocytes Absolute Auto 2.35 K/mm3 (0.9-3.2); Lymphocytes Percent Auto 21.1 % (18.3-44.2); Mean Corpuscular HGB Conc 33.7 g/dl (32-36); Mean Corpuscular Hemoglobin 28.8 pg (26-34); Mean Corpuscular Volume 85.3 fl (80-100); Mean Platelet Volume 9.2 fl (7.4-10.4); Monocytes Absolute Auto 0.8 K/mm3 (0.1-0.6); Monocytes Percent Auto 7.4 % (2.6-8.5); Neutrophils Absolute Auto 7.6 K/mm3 (1.3-6.7); Neutrophils Percent Auto 67.9 % (45.5-73.1); Platelet Count Result 339 k/mm3 (150-375); Red Blood Count 5.18 M/mm3 (4.6-6.20); Red Cell Distribution Width 12.2 % (11.5-14.5); White Blood Count 11.1 K/mm3 (4.5-10.0)
[2022-06-23 08:03] LABS: Alanine Aminotransferase 25 U/L (6-50); Albumin Level 3.8 g/dL (3.5-5.1); Alkaline Phosphatase 61 U/L (38-126); Anion Gap 4 mmol/L (8-16); Aspartate Amino Transferase 26 U/L (17-59); Bilirubin,Total 0.5 mg/dL (0.2-1.3); Blood Urea Nitrogen 13 mg/dL (9-20); Calcium 8.4 mg/dL (8.4-10.2); Carbon Dioxide 29 mmol/L (22-30); Chloride 103 mmol/L (98-107); Estimated CRCL calculation 118 ml/min; Estimated Glomerular Filt Rate > 60; Glucose 96 mg/dL (65-110); Magnesium 2.3 mg/dL (1.6-2.3); Potassium 4.1 mmol/L (3.4-5.0); Sodium 136 mmol/L (137-145)
[2022-06-23] MEDS: SILVERGEL (ELTA) 45 ML 1 APPLIC TOPICAL (09:10)
--- NOTE | 2022-06-23 09:45 | PM.DS ---
DS: Admitting Diagnosis Discharge Date 06/23/2022 0945 Admitting Diagnosis Insect bite of the right upper extremity with infection, MRSA infection DS: Discharge Diagnosis Discharge Diagnosis (1) Wound of right upper extremity: Code(s): S41.101A - Unspecified open wound of right upper arm, initial encounter Status: Acute Assessment and Plan: Unknown history of wound Failed outpatient trend with clindamycin Culture from 06/13/22 showed MRSA New culture shows staph aureus Continue vanco for now General surgery consult thank you for your help Wound care consult, follow dressing and ointment instruction as indicated Pain medications on board WBC stable, afebrile, no signs of sepsis (2) Insect bite of right upper extremity with infection: Code(s): S40.861A - Insect bite (nonvenomous) of right upper arm, initial encounter; L08.9 - Local infection of the skin and subcutaneous tissue, unspecified; W57.XXXA - Bitten or stung by nonvenomous insect and other nonvenomous arthropods, initial encounter Status: Acute Assessment and Plan: See above (3) MRSA infection: Code(s): A49.02 - Methicillin resistant Staphylococcus aureus infection, unspecified site Status: Acute Assessment and Plan: Culture results from wound did show MRSA Currently on Vancomycin Switch to bactrim on discharge Will get a MRSA swab If positive patient will need Hibba cleanze and Mupirocin Follow swab DS: Summary Hospital Course Hospital Course: Patient is a 31-year-old male with no significant past medical history who presented the ED with complaints of on healing wound to the right bicep. The wound had formed about a week and half ago. Patient was seen in the ED and was given clindamycin outpatient. Patient stated that the wound was not really healing and he was having a lot of pain. Upon arrival patient was noted to have a slightly elevated white count which has been trending down since being started on IV antibiotics. Patient has been started on IV vancomycin. Wound culture from the ED visit did show MRSA in the wound ulcer from now shows Staph aureus however has not completely resulted. Patient currently denies any chest pain, shortness a breath, nausea, vomiting, diarrhea, constipation, weakness or fatigue. General surgery has been consulted and has been reviewing the wound as well. The wound was cleaned due to some purulent pockets around the wound. MRSA swab was also collected. Will follow if positive will order patient ointment for nose and hibba cleanse for further treatment and care. Patient will need to be discharged on oral antibiotics. Currently patient is stable for discharge per labs and vital signs. Status at Discharge Functional status at discharge: independent ambulation Overall status at discharge: patient is progressing back to baseline Time Spent with Patient Time attestation: Total time spent providing and/or coordinating discharge services: 54 minutes Time spent: Greater than 30 minutes Specific discharge activities: Diagnostic testing, chart review, developing a treatment plan, education, care coordination documentation, physical exam, result review Exam Narrative: General: well-nourished, well-appearing 31-year-old male, laying in bed, comfortable, NARD Neuro: awake, alert and oriented x4, speech clear, no focal neuro deficits noted HEENMT: normocephalic, atraumatic, EOMI, sclerae anicteric, moist oral mucosa Respiratory: Clear to auscultation bilaterally without crackles, rhonchi or wheezes, nonlabored breathing Cardio: regular rate, regular rhythm with S1-S2 Abdomen: nondistended, normoactive bowel sounds, soft, nontender to palpation Extremities: no edema, erythema, or tenderness to palpation, DP pulses 2+ bilaterally, wound right upper extremity Skin: no rashes or lesions, warm and dry, leison noted to the right upper extremity, red wound bed
--- NOTE | 2022-06-23 13:57 | PM.PNGS ---
Progress Note: A&P Assessment and Plan (1) MRSA infection: Code(s): A49.02 - Methicillin resistant Staphylococcus aureus infection, unspecified site Status: Acute Assessment and Plan: Patient to be discharged on Bactrim today. MRSA nasal swab results are pending. Will be followed up as outpatient (2) Wound of right upper extremity: Code(s): S41.101A - Unspecified open wound of right upper arm, initial encounter Status: Acute Assessment and Plan: Greatly improved even from yesterday. Continue silver gel and gauze daily dressings. I will see him in the office on July 01. He will need to call for an appointment. (3) Insect bite of right upper extremity with infection: Code(s): S40.861A - Insect bite (nonvenomous) of right upper arm, initial encounter; L08.9 - Local infection of the skin and subcutaneous tissue, unspecified; W57.XXXA - Bitten or stung by nonvenomous insect and other nonvenomous arthropods, initial encounter Status: Acute Assessment and Plan: Likely was the original cause of the wound and infection. Subjective Subjective Date/Time Seen: 06/23/22 13:57 Patient reports: feels better, pain is less and afebrile Review of Systems Review of Systems: All systems reviewed & are unremarkable except as noted in HPI and below (HPI) Exam Const: General: comfortable and no acute distress; No confusion Orientation/consciousness: patient oriented x3 and No confusion Neuro: General: patient oriented x3, no focal motor deficits and No confusion Extrem: Right upper extremity: shoulder/upper arm (Wound very clean, granulating, healing nicely) tenderness and normal ROM; no swelling Psych: Affect: normal affect Insight: Good insight present (Psych) Judgement: Good judgement present (Psych) Objective Data Vital Signs Vital Signs: Vital Signs - 24 hr 06/22/22 14:00 06/22/22 14:40 06/22/22 20:00 Temperature 36.5 C Pulse Rate 75 Respiratory Rate 16 Blood Pressure 129/93 H Pulse Oximetry 98 Oxygen Delivery Room Air 06/22/22 22:00 06/23/22 06:00 06/23/22 08:25 Temperature 36.4 C L 36.3 C L Pulse Rate 81 67 Respiratory Rate 20 18 Blood Pressure 138/79 117/73 Pulse Oximetry 98 98 Oxygen Delivery Room Air Intake/Output Intake/Output: Intake & Output 06/20/22 06/21/22 06/22/22 06/23/22 23:59 23:59 23:59 23:59 Intake Total 2120 2990 510 Output Total 760 Balance 0 2230 510 Meds/Results Medications: Active Medications Generic Name Dose Route Start Last Admin Trade Name Freq PRN Reason Stop Dose Admin Acetaminophen 1,000 mg 06/21/22 09:21 Acetaminophen 500 Mg Tablet PO Q6H PRN Mild Pain (1-3) or Fever Hydrocodone Bitart/Acetaminophen 1 tab 06/21/22 02:00 Hydrocodone/Acetaminophen (*Crx) 5-325 Mg Tablet PO Q4H PRN Pain Rated 4-6 Vancomycin HCl 1,250 mg in 250 mls @ 200 mls/hr 06/21/22 11:00 06/23/22 10:33 Vancomycin 1,250 Mg/D5w 250 Ml IVPB 200 mls/hr Q12H KIMBERLY Administration Morphine Sulfate 1 mg 06/21/22 09:21 06/21/22 17:05 Morphine Sulfate (*Crx) 2 Mg/Ml Inj IV PUSH 1 mg Q4H PRN Administration Pain Rated 7-10 Silver Nitrate 1 applic 06/22/22 08:15 06/22/22 14:45 Silvergel (Elta) 45 Ml TOPICAL 1 applic DAILY KIMBERLY Administration Radiology Results: ITS Impressions Shoulder CT 06/21/22 06:31 IMPRESSION: No abscess. No osseous or articular abnormality. Skin thickening and irregularity consistent with wound or spider bite at the lateral aspect of the upper arm. Correlate with physical exam. Labs Labs: Laboratory Results - last 24 hr 06/23/22 06/23/22 06:34 06:34 WBC 11.1 H RBC 5.18 Hgb 14.9 Hct 44.2 MCV 85.3 MCH 28.8 MCHC 33.7 RDW 12.2 Plt Count 339 MPV 9.2 Immature Gran % (Auto) 0.2 Neut % (Auto) 67.9 Lymph % (Auto) 21.1 [place] % (Auto) 7.4 Eos % (Auto) 2.6 Baso % (Auto)
== END 2022-06-23 13:25 | disposition home or self-care (01) ==
LOC: ANHED 06-21 02:05 → ANH3MEDSUR 06-21 22:08
PROVIDERS: Nurse Practitioner; Admitting Provider Internal Medicine; Emergency Provider Physician Assistant; Visit Provider Chiropractor
DX: S41.101A Unspecified open wound of right upper arm, initial encounter (principal); S40.861A Insect bite (nonvenomous) of right upper arm, initial encounter; L08.9 Local infection of the skin and subcutaneous tissue, unspecified; W57.XXXA Bitten or stung by nonvenomous insect and other nonvenomous arthropods, initial encounter; A49.02 Methicillin resistant Staphylococcus aureus infection, unspecified site; M79.621 Pain in right upper arm; Z20.822 Contact with and (suspected) exposure to COVID-19; F12.90 Cannabis use, unspecified, uncomplicated; Z79.1 Long term (current) use of non-steroidal anti-inflammatories (NSAID)
CPT/HCPCS: 36415; 73201; 80048; 80053; 80202; 80307; 81003; 83735; 85025; 85652; 86140; 87070; 87081; 87147; 87181; 87186; 87205; 87636; 96361; 96365; 96366; 96375; 96376; 99285; A9270; G0378; J2270; J3370; J7030; Q9967

== ENCOUNTER 2025-04-12 16:50 | Emergency (ER) | payer BC, SELFPAY ==
--- NOTE | ~2025-04-12 | CT_ITS ---
CT facial bones w con INDICATION: Right-sided facial abscess COMPARISON: None. TECHNIQUE: Axial 2.5 mm images of the maxillofacial bones/sinuses were obtained after administration of of Isovue. Additional axial, coronal and sagittal reformatted images were rendered. FINDINGS: There is a 3.6 x 2.5 x 4 cm fluid collection with enhancing septated wall is noted over the right parotid gland. The sinuses are clear. The bones are intact. The nasal septum is midline. The ostiomeatal complexes and infundibula are patent bilaterally. The turbinates are unremarkable. No abscess or fluid collection is identified. No abnormal enhancement is identified. The orbits and intraorbital contents are unremarkable. IMPRESSION: 3.6 x 2.5 x 4 cm fluid collection over the right parotid gland that has enhancing wall may represent an abscess. Follow-up until resolution is recommended to exclude malignancy. All CT scans at this facility are performed using low dose modulation techniques as appropriate to perform exam including the following: automated exposure control; use of iterative reconstruction technique; adjustment of the mA and/or kV according to patient size (this includes techniques or standardized protocols for targeted exams where dose is matched to indication/reason for exam). Reviewed, dictated and finalized at location [facility] IMPRESSION: 3.6 x 2.5 x 4 cm fluid collection over the right parotid gland that has enhancing wall may represent an abscess. Follow-up until resolution is rec ommended to exclude malignancy. All CT scans at this facility are performed using low dose modulation techniqu es as appropriate to perform exam including the following: automated exposure c ontrol; use of iterative reconstruction technique; adjustment of the mA and/or kV according to patient size (this includes techniques or standardized protocol s for targeted exams where dose is matched to indication/reason for exam).
[2025-04-12 16:52] VITALS: BP 133/86; PULSE 83; RESP 16; TEMP 37; O2SAT 100
--- NOTE | 2025-04-12 17:57 | ED.SKABFB ---
HPI - Skin/Abscess/Foreign Bdy General Chief complaint: Skin/Abscess/Foreign Body <Cindy Lozano PA-C - Last Filed: 04/14/25 09:19> Stated complaint: abscess R. chin <Cindy Lozano PA-C - Last Filed: 04/14/25 09:19> Time Seen by Provider: 04/12/25 17:57 <Cindy Lozano PA-C - Last Filed: 04/14/25 09:19> Focused HPI: This is a 34 year old male that presents to the ER for abscess to the right side of his face. Ongoing over the last week. GENERAL: Well-appearing, well-nourished, and in no acute distress. HEAD: Normocephalic. Right submandibular region with large area of swelling with central fluctuance CHEST: Clear to auscultation. ?No respiratory distress. HEART: Regular rate and rhythm.? NEURO: ?Alert and oriented x3. Patient screened in triage and initial orders placed.? ?Additional care and disposition to be based upon?diagnostic testing and treatment. <Cindy Lozano PA-C - Last Filed: 04/14/25 09:19> History of Present Illness HPI narrative: Agree with the HPI above <Khanh Maynard MD - Last Filed: 04/12/25 23:03> Related Data Allergies/Adverse reactions: Allergies Allergy/AdvReac Type Severity Reaction Status Date / Time amoxicillin Allergy Unknown Unknown Verified 04/12/25 16:51 <Cindy Lozano PA-C - Last Filed: 04/14/25 09:19> Review of Systems Review of Systems: as reviewed above in HPI <Khanh Maynard MD - Last Filed: 04/12/25 23:03> All systems reviewed & are unremarkable except as noted in HPI and below <Khanh Maynard MD - Last Filed: 04/12/25 23:03> PMFSH Past Medical History Medical History: Medical History Trichimoniasis Open wound of right shoulder <Cindy Lozano PA-C - Last Filed: 04/14/25 09:19> Surgical History Surgical History: Surgical History No significant past surgical history <Cindy Lozano PA-C - Last Filed: 04/14/25 09:19> Family History Family History: Family History Grandparent Heart disease Hypertension <Cindy Lozano PA-C - Last Filed: 04/14/25 09:19> Social History Social History: Social History Social History: Patient currently lives on his own and has 2 kids. Patient denies having any pets. Patient elects his grandma Lakesha Baxter to be his surrogate. Patient wishes to be a full code at this time Smoking status: Never smoker Additional smoking assessment comments: smokes marijuana only Alcohol intake: current Drinks per week: 2 Substance use: current Substance use type: marijuana Other substance usage details: 5 joints per day Last use: 06/20 Lack of Transportation: No Lack of Food: Never True Current Housing: I Have Housing Concerned About Future Housing: No Difficulty Paying Gas/Electric Bills: No Difficulty Paying for Meds: No Currently Unemployed: YES Education: Trade/Vocational Certificate Difficulty w/ Childcare or Family Care: No Living arrangements: alone Occupation/Education: occupation 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 Mucous membranes moist. Right jaw has a 3 x 3 area of induration without any significant tenderness to palpation but there is fluctuance. No active oozing or bleeding. Seems to be underneath the jaw line in the hairline. No restricted range of motion of the neck. NECK: Supple. CHEST: [Clear to auscultation. No respiratory distress.] HEART: [Regular rate and rhythm]. No murmur heard. [Normal peripheral pulses.] ABDOMEN: [Soft, nondistended], [nontender], [No rigidity or guarding] EXTREMITIES: Normal range of motion. [No edema.] SKIN: Warm, dry, no rash. NEURO: [No focal deficits]. Alert and oriented [x3.] PSYCH: [Normal mood and affect.] <Khanh Maynard MD - Last Filed: 04/12/25 23:03> Course Vital Signs Vital signs: Vital Signs Temperature 98.6 F 04/12/25 16:52 Pulse Rate 83 04/12/25 16:52 Respiratory Rate 16 04/12/25 16:52 Blood Pressure 133/86 04/12/25 16:52 Pulse Oximetry 100 04/12/25 16:52 Oxygen Delivery Room Air 04/12/25 16:52 Temperature 98.9 F 04/12/25 20:25 Pulse Rate 76 04/12/25 20:25 Respiratory Rate 20 04/12/25 20:25 Blood Pressure 129/98 H 04/12/25 20:25 Pulse Oximetry 100 04/12/25 20:25 Oxygen Delivery Room Air 04/12/25 16:52 <Cindy Lozano PA-C - Last Filed: 04/14/25 09:19> Vital Signs Temperature 98.6 F 04/12/25 16:52 Pulse Rate 83 04/12/25 16:52 Respiratory Rate 16 04/12/25 16:52 Blood Pressure 133/86 04/12/25 16:52 Pulse Oximetry 100 04/12/25 16:52 Oxygen Delivery Room Air 04/12/25 16:52 Temperature 98.9 F 04/12/25 20:25 Pulse Rate 76 04/12/25 20:25 Respiratory Rate 20 04/12/25 20:25 Blood Pressure 129/98 H 04/12/25 20:25 Pulse Oximetry 100 04/12/25 20:25 Oxygen Delivery Room Air 04/12/25 16:52 <Khanh Maynard MD - Last Filed: 04/12/25 23:03> MDM MDM Narrative Medical decision making narrative: 34-year-old male with history of MRSA abscess previously from a spider bite here with right jaw swelling for the last week. Noticed it while he was shaving and has been progressed over the week. No significant pain or any systemic features or symptoms. More cosmetic concerns today. Right jaw has a 3 x 3 area of induration without any significant tenderness to palpation but there is fluctuance. No active oozing or bleeding. Seems to be underneath the jaw line in the hairline. No restricted range of motion of the neck. Suspect abscess likely from infected hair follicle versus cellulitis versus spider bite that he did not notice verses scratch or localized skin breakdown irritation from shaving. He is afebrile with normal vital signs. Laboratory studies and a CT scan with contrast obtained given the size of the area in question. Patient placed on doxycycline for his history of MRSA abscess infections. Did review his prior culture sensitivities and MRSA susceptible to most antibiotics including doxy. labs show very minor leukocytosis but otherwise stable. He is afebrile and very well appearing. Not any distress. CT scan shows abscess overlying the right parotid gland. Superficial in nature. discussed with him options including ENT referral verses bedside drainage. I did discuss the case with Dr. May from ear nose and throat over the phone and he will be seen in clinic tomorrow morning for drainage and patient will be sent home with doxycycline. We discussed strict return precautions and patient was agreeable to the plan for follow-up tomorrow with ENT. Patient is safe for discharge at this time and given return precautions in the meantime as well as prescription for doxycycline. <Khanh Maynard MD - Last Filed: 04/12/25 23:03> Differential Diagnosis Differential Diagnosis: Suspect abscess likely from infected hair follicle versus cellulitis versus spider bite that he did not notice verses scratch or localized skin breakdown irritation from shaving. <Khanh Maynard MD - Last Filed: 04/12/25 23:03> Lab Data [facility] Lab Attestation statement: I personally reviewed the patient's lab results. <Khanh Maynard MD - Last Filed: 04/12/25 23:03> Result diagrams: 04/12/25 18:06 04/12/25 18:06 <Cindy Lozano PA-C - Last Filed: 04/14/25 09:19> Labs: Lab Results 04/12/25 Range/Units 18:06 WBC 12.1 H (4.5-10.0) K/mm3 RBC 5.00 (4.6-6.20) M/mm3 Hgb 14.4 (14.0-18.0) g/dL Hct 42.6 (42.0-52.0) % MCV 85.2 (80-100) fl MCH 28.8 (26-34) pg MCHC 33.8 (32-36) g/dl RDW 13.2 (11.5-14.5) % Plt Count 368 (150-375) k/mm3 MPV 9.0 (7.4-10.4) fl Immature Gran % (Auto) 0.3 (0-0.5) % Neut % (Auto) 67.1 (45.5-73.1) % Lymph % (Auto) 22.8 (18.3-44.2) % [place] % (Auto) 7.4 (2.6-8.5) % Eos % (Auto) 1.7 (0-4.4) % Baso % (Auto) 0.7 (0.2-1.2) % Lymph # (Auto) 2.75 (0.9-3.2) K/mm3 [place] # (Auto) 0.9 H (0.1-0.6) K/mm3 Eos # (Auto) 0.2 (0-0.3) K/mm3 Baso # (Auto) 0.1 (0.0-0.1) K/mm3 Abs Immat Gran (auto) 0.04 H (0.00-0.031) K/mm3 Absolute Neuts (auto) 8.1 H (1.3-6.7) K/mm3 Absolute Nucleated RBC 0.000 (0.0-0.012) K/mm3 Nucleated RBC % 0.0 (0.0-0.2) % ESR 8 (0-20) mm/hr Sodium 140 (137-145) mmol/L Potassium 4.0 (3.4-5.0) mmol/L Chloride 105 (98-107) mmol/L Carbon Dioxide 30 (22-30) mmol/L Anion Gap 5 (4-12) mmol/L BUN 13 (9-20) mg/dL Creatinine 1.01 (0.7-1.3) mg/dL Estim Creat Clear Calc 95 ml/min Estimated GFR > 60 (59 - ) Glucose 98 (65-110) mg/dL Calcium 9.1 (8.4-10.2) mg/dL C-Reactive Protein < 0.5 (<1.0) mg/dL <Cindy Lozano PA-C - Last Filed: 04/14/25 09:19> Lab Results 04/12/25 Range/Units 18:06 WBC 12.1 H (4.5-10.0) K/mm3 RBC 5.00 (4.6-6.20) M/mm3 Hgb 14.4 (14.0-18.0) g/dL Hct 42.6 (42.0-52.0) % MCV 85.2 (80-100) fl MCH 28.8 (26-34) pg MCHC 33.8 (32-36) g/dl RDW 13.2 (11.5-14.5) % Plt Count 368 (150-375) k/mm3 MPV 9.0 (7.4-10.4) fl Immature Gran % (Auto) 0.3 (0-0.5) % Neut % (Auto) 67.1 (45.5-73.1) % Lymph % (Auto) 22.8 (18.3-44.2) % [place] % (Auto) 7.4 (2.6-8.5) % Eos % (Auto) 1.7 (0-4.4) % Baso % (Auto) 0.7 (0.2-1.2) % Lymph # (Auto) 2.75 (0.9-3.2) K/mm3 [place] # (Auto) 0.9 H (0.1-0.6) K/mm3 Eos # (Auto) 0.2 (0-0.3) K/mm3 Baso # (Auto) 0.1 (0.0-0.1) K/mm3 Abs Immat Gran (auto) 0.04 H (0.00-0.031) K/mm3 Absolute Neuts (auto) 8.1 H (1.3-6.7) K/mm3 Absolute Nucleated RBC 0.000 (0.0-0.012) K/mm3 Nucleated RBC % 0.0 (0.0-0.2) % ESR 8 (0-20) mm/hr Sodium 140 (137-145) mmol/L Potassium 4.0 (3.4-5.0) mmol/L Chloride 105 (98-107) mmol/L Carbon Dioxide 30 (22-30) mmol/L Anion Gap 5 (4-12) mmol/L BUN 13 (9-20) mg/dL Creatinine 1.01 (0.7-1.3) mg/dL Estim Creat Clear Calc 95 ml/min Estimated GFR > 60 (59 - ) Glucose 98 (65-110) mg/dL Calcium 9.1 (8.4-10.2) mg/dL C-Reactive Protein < 0.5 (<1.0) mg/dL <Khanh Maynard MD - Last Filed: 04/12/25 23:03> Imaging Data Attestation: I personally reviewed and interpreted this imaging study as follows: <Khanh Maynard MD - Last Filed: 04/12/25 23:03> My impression: Right-sided facial abscess overlying parotid gland <Khanh Maynard MD - Last Filed: 04/12/25 23:03> Radiologist's impression: ITS Impressions Face CT 04/12/25 19:29 IMPRESSION: 3.6 x 2.5 x 4 cm fluid collection over the right parotid gland that has enhancing wall may represent an abscess. Follow-up until resolution is recommended to exclude malignancy. All CT scans at this facility are performed using low dose modulation techniques as appropriate to perform exam including the following: automated exposure control; use of iterative reconstruction technique; adjustment of the mA and/or kV according to patient size (this includes techniques or standardized protocols for targeted exams where dose is matched to indication/reason for exam). <Cindy Lozano PA-C - Last Filed: 04/14/25 09:19> ITS Impressions Face CT 04/12/25 19:29 IMPRESSION: 3.6 x 2.5 x 4 cm fluid collection over the right parotid gland that has enhancing wall may represent an abscess. Follow-up until resolution is recommended to exclude malignancy. All CT scans at this facility are performed using low dose modulation techniques as appropriate to perform exam including the following: automated exposure control; use of iterative reconstruction technique; adjustment of the mA and/or kV according to patient size (this includes techniques or standardized protocols for targeted exams where dose is matched to indication/reason for exam). <Khanh Maynard MD - Last Filed: 04/12/25 23:03> Critical Care Time Critical Care Time Critical Care Time: No <Cindy Lozano PA-C - Last Filed: 04/14/25 09:19> Discharge Plan Discharge Clinical Impression: Abscess of parotid masseteric region of face, History of MRSA infection <Cindy Lozano PA-C - Last Filed: 04/14/25 09:19> Patient Disposition: Home <FARNAZ Moran Last Filed: 04/14/25 09:19> Condition: Stable <FARNAZ Moran Last Filed: 04/14/25 09:19> Instructions: Antibiotic Form, Abscess (ED) <Cindy Lozano PA-C - Last Filed: 04/14/25 09:19> Additional Instructions: You have an abscess on the right side of your face /jaw region that appears superficial but is rather large requiring drainage. History of prior MRSA requiring antibiotics. We have spoke to Dr. May from ear nose and throat surgery who will see you in clinic tomorrow. Please call the provided clinic number and they will also reach out to you to make your appointment tomorrow. We have sent you home with antibiotics and your are covered for tonight given the IV dose received in the emergency department. Take Tylenol and ibuprofen every 6-8 hours for pain and swelling control, apply warm compresses to the area if it is hurting you. Return with any emergent concerns in the meantime otherwise follow-up with ENT tomorrow for definitive management. <Cindy Lozano PA-C - Last Filed: 04/14/25 09:19> Patient Language: Polish <FARNAZ Moran Last Filed: 04/14/25 09:19> Prescriptions: New doxycycline hyclate 100 mg capsule 100 mg PO BID 7 Days Qty: 14 0RF ibuprofen 800 mg tablet 800 mg PO TID PRN (Reason: pain) Qty: 30 0RF acetaminophen [Tylenol Extra Strength] 500 mg tablet 1,000 mg PO TID PRN (Reason: pain) Qty: 30 0RF <Cindy Lozano PA-C - Last Filed: 04/14/25 09:19> Follow-up/Referrals: Porfirio May MD [Physician, Ear, Nose, Throat] - 1 Day Referral Note: right facial abscess requiring drainage antibiotics Clinical Impression: Abscess of parotid masseteric region of face; History of MRSA infection PHYSICIAN,ORGANIC CHEMIST [Primary Care Provider, Internal Medicine] <Cindy Lozano PA-C - Last Filed: 04/14/25 09:19> Stand Alone Forms: Work/School Release IP <Cindy Lozano PA-C - Last Filed: 04/14/25 09:19> Time of Disposition: 20:02 <Cindy Lozano PA-C - Last Filed: 04/14/25 09:19> 20:02 <Khanh Maynard MD - Last Filed: 04/12/25 23:03>
[2025-04-12 18:15] LABS: Hematocrit 42.6 % (42.0-52.0); Hemoglobin 14.4 g/dL (14.0-18.0); Immature Granulocyte Percent A 0.3 % (0-0.5); Lymphocytes Absolute Auto 2.75 K/mm3 (0.9-3.2); Mean Corpuscular HGB Conc 33.8 g/dl (32-36); Mean Corpuscular Hemoglobin 28.8 pg (26-34); Mean Corpuscular Volume 85.2 fl (80-100); Nucleated Red Blood Cells Absolute Auto 0.000 K/mm3 (0.0-0.012); Nucleated Red Blood Cells Perc 0.0 % (0.0-0.2); Platelet Count Result 368 k/mm3 (150-375); Red Blood Count 5.00 M/mm3 (4.6-6.20); White Blood Count 12.1 K/mm3 (4.5-10.0)
[2025-04-12 18:28] LABS: Anion Gap 5 mmol/L (4-12); Blood Urea Nitrogen 13 mg/dL (9-20); CRP < 0.5 mg/dL (<1.0); Calcium 9.1 mg/dL (8.4-10.2); Carbon Dioxide 30 mmol/L (22-30); Chloride 105 mmol/L (98-107); Estimated CRCL calculation 95 ml/min; Estimated Glomerular Filt Rate > 60; Glucose 98 mg/dL (65-110); Potassium 4.0 mmol/L (3.4-5.0); Sodium 140 mmol/L (137-145)
[2025-04-12] MEDS: DOXYCYCLINE IV 100 MG in SODIUM CHLORIDE 0.9% IV 100 ML IVPB (19:23)
[2025-04-12 20:25] VITALS: BP 129/98; PULSE 76; RESP 20; TEMP 37.2; O2SAT 100
== END 2025-04-12 20:36 | disposition home or self-care (01) ==
PROVIDERS: Physician Assistant; Emergency Provider Student in an Organized Health Care Education/Training Program
DX: K11.3 Abscess of salivary gland (principal); Z86.14 Personal history of Methicillin resistant Staphylococcus aureus infection
CPT/HCPCS: 36415; 70487; 80048; 85025; 85652; 86140; 96365; 99284; Q9967

== ENCOUNTER 2025-04-14 15:42 | Outpatient (NON) | payer BC, SELFPAY | END 2025-04-14 15:43 | disposition home or self-care (01) | LOC: ANHGOSHLAB 15:42 | PROVIDERS: Visit Provider Otolaryngology | DX: A49.02 Methicillin resistant Staphylococcus aureus infection, unspecified site (principal) | CPT/HCPCS: 87070; 87075; 87147; 87186; 87205 ==